=== PATIENT | female | born 1980 | race African-American/Black ===

== ENCOUNTER 2016-05-11 06:56 | Emergency (ER) | payer SELFPAY ==
[~2016-05-11] VITALS: Ht 162.6 cm; Wt 100.0 kg
[2016-05-11] MEDS ORDERED: PENICILLN VK500 MG PO (07:31)
[2016-05-11] MEDS ORDERED: NAPROSYN500 MG PO (07:31)
[2016-05-11 07:50] VITALS: BP 147/88
== END 2016-05-11 07:50 | disposition home or self-care (01) | DRG 159 ==
LOC: ED 06:56
DX: K03.81 Cracked tooth (principal); F17.290 Nicotine dependence, other tobacco product, uncomplicated

== ENCOUNTER 2017-12-12 11:23 | Emergency (ER) | payer SELFPAY ==
[~2017-12-12] VITALS: Ht 162.6 cm; Wt 90.0 kg
[~2017-12-12 11:23] MED LIST: NAPROSYN500 MG PO; PENICILLN VK500 MG PO
[2017-12-12] MEDS ORDERED: PENICILLN VK500 M1 PO (11:46)
[2017-12-12 11:59] VITALS: BP 164/77
== END 2017-12-12 11:59 | disposition home or self-care (01) | DRG 159 ==
LOC: ED 11:23
DX: K08.89 Other specified disorders of teeth and supporting structures (principal); F17.210 Nicotine dependence, cigarettes, uncomplicated

== ENCOUNTER 2018-09-19 10:41 | Emergency (ER) | payer OTHER ==
[~2018-09-19] VITALS: Ht 162.6 cm; Wt 95.0 kg
[~2018-09-19 10:41] MED LIST changes: +PENICILLN VK500 M1 PO
[2018-09-19 11:41] LABS: URINE BILIRUBIN - DIPSTICK NEGATIVE (NEGATIVE); URINE BLOOD DIPSTICK NEGATIVE (NEGATIVE); URINE COLOR YELLOW; URINE GLUCOSE - DIPSTICK NEGATIVE (NEGATIVE); URINE KETONE NEGATIVE (NEGATIVE); URINE LEUK ESTERASE NEGATIVE (Negative); URINE NITRITE - DIPSTICK NEGATIVE (Negative); URINE PH 5.5 (4.5-8.0); URINE PROTEIN - DIPSTICK TRACE mg/dL (NEG-TRACE); URINE UROBILINOGEN - DIPSTICK 0.2 E.U./dL (0.2)
[2018-09-19 11:42] LABS: URINE CLARITY CLEAR
[2018-09-19] MEDS ORDERED: FLEXERIL PO (11:57)
[2018-09-19 12:21] VITALS: BP 158/73
== END 2018-09-19 12:21 | disposition home or self-care (01) | DRG 552 ==
LOC: ED 10:41
DX: M62.830 Muscle spasm of back (principal); F17.200 Nicotine dependence, unspecified, uncomplicated

== ENCOUNTER 2018-11-11 06:07 | Emergency (ER) | payer OTHER ==
[~2018-11-11] VITALS: Ht 162.6 cm; Wt 90.0 kg
[~2018-11-11 06:07] MED LIST changes: +FLEXERIL PO
[2018-11-11 08:04] LABS: URINE BLOOD DIPSTICK SMALL (NEGATIVE); URINE COLOR YELLOW; URINE GLUCOSE - DIPSTICK NEGATIVE (NEGATIVE); URINE KETONE 15 mg/dL (NEGATIVE); URINE LEUK ESTERASE NEGATIVE (Negative); URINE NITRITE - DIPSTICK NEGATIVE (Negative); URINE PROTEIN - DIPSTICK >=300 mg/dL (NEG-TRACE); URINE SPECIFIC GRAVITY >=1.030
[2018-11-11 08:37] LABS: URINE BILIRUBIN - DIPSTICK MODERATE (NEGATIVE); URINE CLARITY CLEAR
[2018-11-11] MEDS ORDERED: KEFLEX500 MG PO (08:42)
[2018-11-11] MEDS ORDERED: TAM75CAP PO (08:42)
[2018-11-11 08:43] LABS: URINE SQUAMOUS EPITHELIAL CELL MANY EPI/hpf (0-FEW)
[2018-11-11 08:44] LABS: URINE BACTERIA FEW hpf; URINE WBC 0-2 WBC/hpf (0-5)
[2018-11-11 09:08] VITALS: BP 147/83
== END 2018-11-11 09:08 | disposition home or self-care (01) | DRG 195 ==
LOC: ED 06:07
PROVIDERS: Emergency Medicine
DX: J10.1 Influenza due to other identified influenza virus with other respiratory manifestations (principal); F17.210 Nicotine dependence, cigarettes, uncomplicated